=== PATIENT | female | born 1980 | race Caucasian/White ===

== ENCOUNTER → 2017-12-23 08:48 | Outpatient (CLI) | payer OTHER, SELFPAY ==
[2017-12-23 09:36] LABS: Anion Gap 7 (5-15); BUN 10 mg/dL (7-18); BUN/Creat Ratio 15.8 RATIO (10-20); Calcium,Total 8.7 mg/dL (8.5-10.1); Chloride 109 mmol/L (98-107); Creatinine, Serum 0.63 mg/dL (0.55-1.02); EST Glomerular Filtration Rate 114 mL/min (>60); Est Glom Filt Rate - Afr Amer 138 mL/min (>60); Glucose 95 mg/dL (74-106); Potassium 4.4 mmol/L (3.5-5.1); Sodium Level 140 mmol/L (136-145); Thyroid Stim Hormone (TSH) 0.63 uIU/mL (0.358-3.74)
== END ==
PROVIDERS: Family Provider Family Medicine; PCP Family Medicine; Visit Provider Internal Medicine Endocrinology, Diabetes & Metabolism
DX: E03.8 Other specified hypothyroidism (principal); E88.81 Metabolic syndrome and other insulin resistance; E66.01 Morbid (severe) obesity due to excess calories
CPT/HCPCS: 36415; 80048; 84403; 84443

== ENCOUNTER → 2018-02-09 17:00 | Outpatient (CLI) | payer OTHER, SELFPAY ==
[2018-02-09 18:38] LABS: Thyroid Stim Hormone (TSH) 2.48 uIU/mL (0.358-3.74)
== END ==
PROVIDERS: Family Provider Family Medicine; PCP Family Medicine; Visit Provider Internal Medicine Endocrinology, Diabetes & Metabolism
DX: E03.8 Other specified hypothyroidism (principal)
CPT/HCPCS: 84443

== ENCOUNTER → 2018-04-10 14:55 | Outpatient (CLI) | payer OTHER, SELFPAY ==
[2018-04-10 17:10] LABS: ALB/GLOB Ratio 0.8 RATIO (0.9-2.4); AST(SGOT) 10 U/L (15-37); Alanine Aminotransfer ALT/SGPT 14 U/L (13-56); Albumin, Serum 2.9 g/dL (3.2-5.0); Alkaline Phosphatase 54 U/L (45-117); Anion Gap 11 (5-15); BUN 9 mg/dL (7-18); BUN/Creat Ratio 18.7 RATIO (10-20); Calcium,Total 8.8 mg/dL (8.5-10.1); Chloride 107 mmol/L (98-107); Creatinine, Serum 0.48 mg/dL (0.55-1.02); EST Glomerular Filtration Rate 156 mL/min (>60); Est Glom Filt Rate - Afr Amer 188 mL/min (>60); Globulin 3.6 g/dL (2.2-4.2); Glucose 79 mg/dL (74-106); Potassium 3.7 mmol/L (3.5-5.1); Protein, Total 6.5 g/dL (6.4-8.2); Sodium Level 140 mmol/L (136-145); Thyroid Stim Hormone (TSH) 1.38 uIU/mL (0.358-3.74)
== END ==
PROVIDERS: Family Provider Family Medicine; PCP Family Medicine; Visit Provider Internal Medicine Endocrinology, Diabetes & Metabolism
DX: E03.8 Other specified hypothyroidism (principal); E04.0 Nontoxic diffuse goiter
CPT/HCPCS: 36415; 80053; 84443

== ENCOUNTER → 2018-05-23 11:20 | Outpatient (CLI) | payer OTHER, SELFPAY ==
[2018-05-23 12:55] LABS: Thyroid Stim Hormone (TSH) 0.62 uIU/mL (0.358-3.74)
== END ==
PROVIDERS: Family Provider Family Medicine; PCP Family Medicine; Visit Provider Internal Medicine Endocrinology, Diabetes & Metabolism
DX: E03.8 Other specified hypothyroidism (principal); E04.0 Nontoxic diffuse goiter
CPT/HCPCS: 36415; 84443

== ENCOUNTER → 2018-09-24 09:06 | Outpatient (CLI) | payer OTHER, SELFPAY ==
[2018-09-24 10:34] LABS: Thyroid Stim Hormone (TSH) 5.28 uIU/mL (0.358-3.74)
== END ==
PROVIDERS: Family Provider Family Medicine; PCP Family Medicine; Referring Provider Internal Medicine Endocrinology, Diabetes & Metabolism; Visit Provider Internal Medicine Endocrinology, Diabetes & Metabolism
DX: E03.8 Other specified hypothyroidism (principal)
CPT/HCPCS: 36415; 84443

== ENCOUNTER → 2018-12-29 08:48 | Outpatient (CLI) | payer OTHER, SELFPAY ==
[2018-12-29 09:59] LABS: Thyroid Stim Hormone (TSH) 0.05 uIU/mL (0.358-3.74)
== END ==
PROVIDERS: Family Provider Family Medicine; PCP Family Medicine; Referring Provider Internal Medicine Endocrinology, Diabetes & Metabolism; Visit Provider Internal Medicine Endocrinology, Diabetes & Metabolism
DX: E03.8 Other specified hypothyroidism (principal)
CPT/HCPCS: 36415; 84443

== ENCOUNTER → 2019-04-12 | Outpatient (CLI) | payer OTHER, SELFPAY ==
[2019-04-12 12:12] LABS: Thyroid Stim Hormone (TSH) 0.08 uIU/mL (0.358-3.74)
== END | disposition home or self-care (01) ==
LOC: LAB 11:19
PROVIDERS: Family Provider Family Medicine; PCP Family Medicine; Referring Provider Internal Medicine Endocrinology, Diabetes & Metabolism; Visit Provider Internal Medicine Endocrinology, Diabetes & Metabolism
DX: E03.8 Other specified hypothyroidism (principal); E04.0 Nontoxic diffuse goiter
CPT/HCPCS: 36415; 84443

== ENCOUNTER → 2019-06-15 | Outpatient (CLI) | payer OTHER, SELFPAY ==
[2019-06-15 11:36] LABS: Thyroid Stim Hormone (TSH) 0.16 uIU/mL (0.358-3.74)
== END | disposition home or self-care (01) ==
LOC: LAB 10:13
PROVIDERS: Family Provider Family Medicine; PCP Family Medicine; Referring Provider Internal Medicine Endocrinology, Diabetes & Metabolism; Visit Provider Internal Medicine Endocrinology, Diabetes & Metabolism
DX: E03.8 Other specified hypothyroidism (principal); E04.0 Nontoxic diffuse goiter
CPT/HCPCS: 36415; 84443

== ENCOUNTER → 2019-08-24 09:59 | Outpatient (CLI) | payer OTHER, SELFPAY ==
[2019-08-24 10:45] LABS: Thyroid Stim Hormone (TSH) 5.02 uIU/mL (0.358-3.74)
== END ==
PROVIDERS: Family Provider Family Medicine; PCP Family Medicine; Referring Provider Internal Medicine Endocrinology, Diabetes & Metabolism; Visit Provider Internal Medicine Endocrinology, Diabetes & Metabolism
DX: E03.8 Other specified hypothyroidism (principal)
CPT/HCPCS: 36415; 84443

== ENCOUNTER → 2019-11-02 11:36 | Outpatient (CLI) | payer OTHER, SELFPAY ==
[2019-11-02 12:50] LABS: Thyroid Stim Hormone (TSH) 4.42 uIU/mL (0.358-3.74)
== END ==
PROVIDERS: Family Provider Family Medicine; PCP Family Medicine; Referring Provider Internal Medicine Endocrinology, Diabetes & Metabolism; Visit Provider Internal Medicine Endocrinology, Diabetes & Metabolism
DX: E03.8 Other specified hypothyroidism (principal)
CPT/HCPCS: 36415; 84443

== ENCOUNTER → 2020-05-23 10:42 | Outpatient (CLI) | payer OTHER, SELFPAY ==
[2020-05-23 11:46] LABS: Thyroid Stim Hormone (TSH) 6.88 uIU/mL (0.358-3.74)
== END ==
PROVIDERS: PCP Family Medicine; Referring Provider Internal Medicine Endocrinology, Diabetes & Metabolism; Visit Provider Internal Medicine Endocrinology, Diabetes & Metabolism
DX: E03.8 Other specified hypothyroidism (principal)
CPT/HCPCS: 36415; 84443

== ENCOUNTER → 2020-12-31 16:59 | Outpatient (CLI) | payer OTHER, SELFPAY ==
[2020-12-31 17:51] LABS: Absolute Lymphocyte Count 2.89 X10^3/uL (0.83-4.51); Basophil# 0.06 X10^3/uL; Basophil% 0.7 % (0-1); Eosinophils% 3.4 % (0-5); Hematocrit 40.8 % (37-47); Hemoglobin 13.1 g/dL (12.0-15.0); Lymphocyte # 2.89 X10^3/ul (4.0); Lymphocyte % 32.6 % (19-41); Mean Corp Hgb Conc 32.1 g/dL (32-36); Mean Corpuscular Hgb 29.2 pg (27.0-32.0); Mean Corpuscular Volume 91.1 fL (81-99); Mean Platelet Vol. 10.1 fl (6.2-12.0); Monocyte# 0.62 X10^3/uL; NRBC Flagged by Analyzer 0 % (0-5); Neutrophil # 4.96 X10^3/uL (2.7-7.7); Platelet Count 261 K/mm3 (150-450); RBC Distribution Width CV 13.7 % (11.6-14.6); RBC Distribution Width SD 45.3 fl (35.1-43.9); Red Blood Count 4.48 M/mm3 (4.2-5.4); White Blood Count 8.9 K/mm3 (4.4-11.0)
[2020-12-31 18:50] LABS: AST(SGOT) 18 U/L (15-37); Alanine Aminotransfer ALT/SGPT 24 U/L (13-56); Albumin, Serum 3.8 g/dL (3.2-5.0); Alkaline Phosphatase 70 U/L (45-117); Anion Gap 7 (5-15); BUN 12 mg/dL (7-18); BUN/Creat Ratio 16.2 RATIO (10-20); Calcium,Total 9.1 mg/dL (8.5-10.1); Chloride 105 mmol/L (98-107); Creatinine, Serum 0.74 mg/dL (0.55-1.02); EST Glomerular Filtration Rate 93 mL/min (>60); Est Glom Filt Rate - Afr Amer 113 mL/min (>60); Globulin 3.9 g/dL (2.2-4.2); Glucose 66 mg/dL (74-106); Potassium 3.9 mmol/L (3.5-5.1); Protein, Total 7.7 g/dL (6.4-8.2); Sodium Level 138 mmol/L (136-145)
== END ==
PROVIDERS: PCP Family Medicine; Visit Provider Family Medicine Geriatric Medicine
DX: R53.83 Other fatigue (principal)
CPT/HCPCS: 36415; 80053; 84443; 85025

== ENCOUNTER → 2021-04-23 13:06 | Outpatient (CLI) | payer OTHER, SELFPAY ==
[2021-03-18 14:19] VITALS: BMI 48.8
== END ==
PROVIDERS: PCP Family Medicine; Referring Provider Internal Medicine Endocrinology, Diabetes & Metabolism; Visit Provider Internal Medicine Endocrinology, Diabetes & Metabolism
DX: E06.3 Autoimmune thyroiditis (principal); E03.8 Other specified hypothyroidism
CPT/HCPCS: 36415; 84439; 84443

== ENCOUNTER 2022-02-07 10:26 | Outpatient (CLI) | payer OTHER, SELFPAY ==
[2022-02-07 12:57] LABS: T4 Free Direct 1.18 ng/dL (0.76-1.46); Thyroid Stim Hormone (TSH) 0.43 uIU/mL (0.358-3.74)
== END 2022-02-07 23:59 | disposition home or self-care (01) ==
LOC: BIMLAB 10:27
PROVIDERS: PCP Family Medicine; Referring Provider Nurse Practitioner Family; Visit Provider Nurse Practitioner Family
DX: E03.8 Other specified hypothyroidism (principal); E06.3 Autoimmune thyroiditis
CPT/HCPCS: 36415; 84439; 84443

== ENCOUNTER → 2022-09-16 | Outpatient (CLI) | payer OTHER, SELFPAY ==
[2022-09-16 18:41] LABS: ALB/GLOB Ratio 0.9 RATIO (0.9-2.4); AST(SGOT) 26 U/L (15-37); Alanine Aminotransfer ALT/SGPT 45 U/L (13-56); Albumin, Serum 3.6 g/dL (3.2-5.0); Alkaline Phosphatase 79 U/L (45-117); Anion Gap 4 (5-15); BUN 15 mg/dL (7-18); BUN/Creat Ratio 24.5 RATIO (10-20); Calcium,Total 8.8 mg/dL (8.5-10.1); Chloride 108 mmol/L (98-107); Creatinine, Serum 0.61 mg/dL (0.55-1.02); EST Glomerular Filtration Rate 115 mL/min (>60); Est Glom Filt Rate - Afr Amer 140 mL/min (>60); Glucose 80 mg/dL (74-106); Potassium 3.9 mmol/L (3.5-5.1); Protein, Total 7.6 g/dL (6.4-8.2); Sodium Level 138 mmol/L (136-145)
== END | disposition home or self-care (01) ==
LOC: BIMLAB 15:56
PROVIDERS: PCP Family Medicine; Referring Provider Internal Medicine Endocrinology, Diabetes & Metabolism; Visit Provider Internal Medicine Endocrinology, Diabetes & Metabolism
DX: E03.8 Other specified hypothyroidism (principal); E06.3 Autoimmune thyroiditis; E28.2 Polycystic ovarian syndrome
CPT/HCPCS: 36415; 80053; 84439; 84443

== ENCOUNTER → 2023-09-22 | Outpatient (CLI) | payer OTHER, SELFPAY ==
[2023-09-22 13:03] LABS: AST(SGOT) 21 U/L (15-37); Alanine Aminotransfer ALT/SGPT 37 U/L (13-56); Albumin, Serum 3.4 g/dL (3.2-5.0); Alkaline Phosphatase 71 U/L (45-117); Anion Gap 5 (5-15); BUN 12 mg/dL (7-18); BUN/Creat Ratio 19.5 RATIO (10-20); Calcium,Total 8.6 mg/dL (8.5-10.1); Chloride 106 mmol/L (98-107); Cholesterol 153 mg/dL (200); Creatinine, Serum 0.62 mg/dL (0.55-1.02); EST Glomerular Filtration Rate 114 mL/min (>60); Est Glom Filt Rate - Afr Amer 138 mL/min (>60); Globulin 3.4 g/dL (2.2-4.2); Glucose 166 mg/dL (74-106); High Density Lipoprotein 38 mg/dL; Potassium 4.1 mmol/L (3.5-5.1); Protein, Total 6.8 g/dL (6.4-8.2); Sodium Level 137 mmol/L (136-145); T4 Free Direct 0.96 ng/dL (0.76-1.46); Thyroid Stim Hormone (TSH) 0.51 uIU/mL (0.358-3.74); Triglycerides 176 mg/dL; Very Low Density Lipoprotein 35 mg/dL (5-40)
== END | disposition home or self-care (01) ==
LOC: BIMLAB 10:34
PROVIDERS: PCP Family Medicine; Referring Provider Nurse Practitioner Family; Visit Provider Nurse Practitioner Family
DX: E03.8 Other specified hypothyroidism (principal); E06.3 Autoimmune thyroiditis; E28.2 Polycystic ovarian syndrome
CPT/HCPCS: 36415; 80053; 80061; 84439; 84443

== ENCOUNTER 2024-09-29 17:50 | Emergency (ER) | payer OTHER, SELFPAY ==
[2024-09-29 17:51] VITALS: BP 125/90; PULSE 101; RESP 16; TEMP 36.7; O2SAT 98; BMI 44.9
[2024-09-29 18:38] LABS: Absolute Lymphocyte Count 2.09 X10^3/uL (0.83-4.51); Absolute Neutrophil Count 7.9 X10^3/uL (2.0-7.7); Basophil# 0.05 X10^3/uL; Basophil% 0.5 % (0-1); Eosinophil# 0.16 X10^3/uL; Eosinophils% 1.5 % (0-5); Hematocrit 38.1 % (37-47); Hemoglobin 12.4 g/dL (12.0-15.0); Lymphocyte # 2.09 X10^3/ul (0.83-4.51); Lymphocyte % 19.1 % (19-41); Mean Corp Hgb Conc 32.5 g/dL (32-36); Mean Corpuscular Hgb 27.1 pg (27.0-32.0); Mean Corpuscular Volume 83.4 fL (81-99); Mean Platelet Vol. 10.6 fl (6.2-12.0); Monocyte# 0.74 X10^3/uL; Monocyte% 6.7 % (0-10); NRBC Flagged by Analyzer 0 % (0-5); Neutrophil # 7.89 X10^3/uL (2.7-7.7); Neutrophil % 71.8 % (47-70); Platelet Count 261 K/mm3 (150-450); RBC Distribution Width CV 13.7 % (11.6-14.6); RBC Distribution Width SD 41.1 fl (35.1-43.9); Red Blood Count 4.57 M/mm3 (4.2-5.4)
[2024-09-29 18:45] LABS: Color, Urine Yellow (Yellow); Glucose, Dipstick Normal (Normal); Ketone-Dipstick Negative (Negative); Leukocyte Esterase-Dipstick Negative /ul (Negative); Nitrite-Dipstick Negative (Negative); Occult Blood-Urine Negative /ul (Negative); Protein-Dipstick 15 mg/dl (Negative); Specific Gravity, Urine 1.015 (1.002-1.030); Urine Bilirubin Dipstick Negative (Negative); Urine Clarity Sl. Cloudy (Clear); Urine Urobilinogen Normal (Normal)
[2024-09-29 18:52] LABS: Bacteria 1+ /hpf (None Seen); Mucous, Urine 2+ /hpf (<or=2+)
[2024-09-29 18:53] LABS: Squamous Epithelial Cells - UA 5-10 SEEN /hpf (5-10)
[2024-09-29 18:55] LABS: AST(SGOT) 14 U/L (15-37); Alanine Aminotransfer ALT/SGPT 28 U/L (13-56); Albumin, Serum 3.8 g/dL (3.2-5.0); Alkaline Phosphatase 74 U/L (45-117); Anion Gap 4 (5-15); BUN 10 mg/dL (7-18); BUN/Creat Ratio 12.4 RATIO (10-20); Calcium,Total 9.3 mg/dL (8.5-10.1); Chloride 106 mmol/L (98-107); Creatinine, Serum 0.81 mg/dL (0.55-1.02); EST Glomerular Filtration Rate 83 mL/min (>60); Est Glom Filt Rate - Afr Amer 100 mL/min (>60); Estimated Creatinine Clearance 120.03 ml/min; Globulin 3.9 g/dL (2.2-4.2); Glucose 97 mg/dL (74-106); Lipase 52 U/L (13-75); Potassium 3.8 mmol/L (3.5-5.1); Protein, Total 7.7 g/dL (6.4-8.2); Sodium Level 137 mmol/L (136-145)
[2024-09-29 18:56] LABS: Internal QC Validated? YES +Cl - CLEAR BKGD; Pregnancy, Urine Negative Negative; Red Blood Cells-Urine 0-5 SEEN /hpf (0-5); White Blood Cells 0-5 SEEN /hpf (0-5)
--- NOTE | 2024-09-29 19:18 | CT_ITS ---
STUDY: CT Abdomen And Pelvis W/ Contrast Injection 09/29/2024 7:54 PM REASON FOR EXAM: Female, 43 years old. ABDOMINAL PAIN rlq pain TECHNIQUE: Transaxial images were obtained without oral contrast, and IV 100mL Isovue-370 intravenous contrast. Individualized dose optimization techniques were used for this CT. COMPARISON: None FINDINGS: The visualized lung bases are unremarkable. The visualized portions of the heart are within normal limits. Unremarkable liver. Unremarkable gallbladder and extrahepatic biliary system. Unremarkable spleen. Unremarkable pancreas. Unremarkable bilateral adrenal glands. No acute findings of the right kidney. No acute findings of the left kidney. Unremarkable visualized stomach. Unremarkable small intestine. Unremarkable colon. There is non-visualization of the appendix. There are no acute findings of the abdominal aorta. Unremarkable inferior vena cava. Subcentimeter mesenteric lymph nodes. Unremarkable urinary bladder. Normal visualized uterus. 11.8 x 14 cm right ovarian cyst. There is an umbilical hernia containing fat. No acute findings in the lumbar spine. Degenerative findings of the thoracic spine. CT/Abdomen/Pelvis W IV Cont ONLY IMPRESSION: (NOT LISTED IN ORDER OF SIGNIFICANCE) Umbilical hernia containing fat. Degenerative findings in the thoracic spine. 14 cm right ovarian cyst. Concern for low-grade cystic neoplasm of the ovary. Gynecologic consultation is recommended and consider MRI with IV contrast if clinically warranted. Other findings as above. Electronically Signed: Dedrick Dooley MD at 20:07 EST ,
[2024-09-29 19:47] VITALS: BP 130/81
--- NOTE | 2024-09-29 20:43 | US_ITS ---
INDICATION: right ovarian cyst EXAMINATION: Ultrasound US Transvaginal Non-OB TECHNIQUE: Transabdominal and transvaginal sonographic images of the pelvis. Grayscale, spectral waveform, and color flow Doppler evaluation of the adnexa. COMPARISON: CT from earlier same day. FINDINGS: UTERUS: Anteverted. 11.5 x 7.1 x 6.3 cm. No evidence of a uterine mass or fibroid. Endometrium is unremarkable. Endometrial stripe thickness of 1.8 cm. Multiple nabothian cysts. RIGHT OVARY: 2.0 cm cyst consistent with a dominant follicle with no follow-up recommended. Normal vascular flow demonstrated with color and pulsed-wave Doppler. LEFT OVARY: Unremarkable. Normal vascular flow demonstrated with color and pulsed-wave Doppler. FREE FLUID: No significant free fluid. 14.9 cm simple cyst superior to the uterus. US/Transvaginal Non- IMPRESSION: 1. 14.9 cm simple cyst superior to the uterus. These ultrasound images do not demonstrate the cyst to be associated with an ovary, however CT images demonstrate what appears to be the cyst arising from the right ovary. Recommend follow-up with nonemergent routine pelvic MRI for further delineation of the origin of the cyst. 2. No evidence of ovarian torsion. Electronically Signed: Yao Wang DO at 22:49 EST ,
[2024-09-29] MEDS: Acetaminophen 500 MG Tablet 1000 MG PO (21:34)
[2024-09-29 21:36] VITALS: BP 154/100; PULSE 100; RESP 16; O2SAT 100
--- NOTE | 2024-09-29 23:07 | EX.ED.DYSGE1 ---
HPI History of Present Illness Chief Complaint: Abd Pain Narrative Narrative: Patient is a 43-year-old female with past medical history PCOS, diabetes, hypothyroidism who presented to the emergency department with a chief complaint of abdominal pain. Patient states that her pain started earlier today and persisted prompting her to come here for further evaluation management. Patient denies any previous abdominal surgery. Patient states that her pain appears to be worsened when she tries to get up and ambulates she states that if she is sitting still her pain is controlled. States that she has not taken thing for pain prior to arrival here. PFSH [facility] Medical History Diabetes Obesity PCOS (polycystic ovarian syndrome) Abnormal glucose Hypothyroidism due to Bishnu's thyroiditis Thyroid disease Home Medications ?Medication ?Instructions ?Recorded ?Last Taken ?Type levothyroxine 175 mcg tablet 175 mcg PO .Mon-Mon, skip Monday11/03/23 Unknown Rx #90 tabs Mounjaro 10 mg/0.5 mL subcutaneous 10 mg (0.5 mL) subcut QWEEK #2 mL 02/27/24 Unknown Rx pen injector (tirzepatide) tirzepatide 7.5 mg/0.5 mL 7.5 mg (0.5 mL) subcut QWEEK #2 mL 07/24/24 Unknown Rx subcutaneous pen injector (Mounjaro) dicyclomine 10 mg capsule 10 mg PO TID 5 days #15 caps 09/29/24 Unknown Rx ondansetron 4 mg disintegrating 4 mg PO Q6H PRN nausea and 09/29/24 Unknown Rx tablet vomiting #20 tabs Allergy/AdvReac Type Severity Reaction Status Date / Time Penicillins Allergy Other Verified 09/29/24 17:51 Family History Other Breast cancer CVA (cerebral vascular accident) Diabetes High cholesterol Hypertension Skin cancer Social History Smoking Status: Never smoker alcohol intake: current alcohol intake frequency: 0-2 drinks per day substance use type: does not use what type of physical activity do you participate in: none ROS ROS ED ROS Narrative Constitutional: Denies any fevers, chills, headaches, lightness, dizziness Eyes: Denies change in vision double vision blurry vision Cardiovascular: Denies chest pain or palpitations Respiratory: Denies shortness of breath Abdomen: Complains of abdominal pain that started earlier today as noted above : Denies any urinary symptoms Neurological: Denies any numbness, weakness, tingling Skin: Denies rashes or lesions EXAM Physical Exam Narrative Exam Narrative: General: Patient lying in bed rest comfortably did not appear to be in acute distress Head: Atraumatic, normocephalic Eyes: PERRL bilateral, EOMI bladder, no conjunctival injection noted Neck: Soft, supple, trachea midline Cardiovascular: Regular rate and rhythm no murmurs gallops rubs noted Respiratory: Clear to auscultation bilaterally Abdomen: Soft, nondistended, tender to palpation in the right lower quadrant no rebound or guarding on exam Extremities: +5/5 strength noted in the bilateral upper and lower extremities, radial pulses +2/4 in the bilateral per extremities Neurological: Patient was following commands knew that she was at [facility] there is 2023 Skin: Warm, dry, intact Const Vital Signs: 09/29/24 17:51 09/29/24 19:47 09/29/24 21:36 Temperature 98.0 F Temperature Source Oral Pulse Rate 101 H 100 Respiratory Rate 16 16 Blood Pressure 125/90 H 130/81 H 154/100 H Blood Pressure Mean 101 97 118 Pulse Ox 98 100 Oxygen Delivery Method Room Air Room Air MDM [facility] Narrative Medical decision making narrative: Patient is a 43-year-old female who presented to the [facility] part with a chief complaint of abdominal pain. Patient will have a workup performed here on the differential diagnose includes but not limited to appendicitis, viral gastroenteritis, ruptured cyst, ovarian torsion. Once workup is obtained reviewed she will be reevaluated. Patient's CBC reviewed and showed no evidence leukocytosis white blood count normal 11, hemoglobin was normal at 12.4, platelet count stable to 61. Patient sodium normal 137, potassium normal 3.8, creatinine normal at 0.81. Patient's AST and ALT are 14 and 28 respectively with a normal total bilirubin of 0.40. Patient's lipase normal at 52. Patient's urinalysis reviewed and showed no evidence of infection and test was negative. Patient CT abdomen pelvis with IV contrast was reviewed and showed 14 cm right ovarian cyst concern for low-grade cystic neoplasm of the ovary gynecological consultation is recommending consider MRI with IV contrast if clinically warranted. Since patient was having worsening pain with standing and this was in the right lower quadrant and she has a large ovary will add on a ultrasound to ensure she does not have ovarian torsion. Patient's ultrasound was reviewed which showed simple cyst to the uterus which once again was measured at 14.9 cm. The ultrasound images do not demonstrate the cyst to be associated with an ovary however her CT images demonstrate what appears to be a cyst arising from the right ovary. They are recommending nonemergent routine pelvic MRI for further delineation of the origin of the cyst no evidence of ovarian torsion. I did provide hardcopy results of the CT abdomen pelvis with contrast as well as the ultrasound and discussed these results with the patient. She was advised to take these to her [employer] and her primary care physician. She was advised to return with worsening symptoms or concerns. She will be care was prescribed Bentyl and Zofran. She would like to go home her significant other bedside is also agreeable with this plan all question concerns answered she was discharged home in stable condition. Lab Data Labs: Laboratory Results - last 24 hr 09/29/24 09/29/24 18:05 18:35 WBC 11.0 RBC 4.57 Hgb 12.4 Hct 38.1 MCV 83.4 MCH 27.1 MCHC 32.5 RDW Std Deviation 41.1 RDW Coeff of Emeli 13.7 Plt Count 261 MPV 10.6 Immature Gran % (Auto) 0.400 Neut % (Auto) 71.8 H Lymph % (Auto) 19.1 [place] % (Auto) 6.7 Eos % (Auto) 1.5 Baso % (Auto) 0.5 Absolute Neuts (auto) 7.9 H Absolute Lymphs (auto) 2.09 Nucleated RBC % 0 Sodium 137 Potassium 3.8 Chloride 106 Carbon Dioxide 27.0 Anion Gap 4 L BUN 10 Creatinine 0.81 Estim Creat Clear Calc 120.03 Est GFR (MDRD) Af Amer 100 Est GFR (MDRD) Non-Af 83 BUN/Creatinine Ratio 12.4 Glucose 97 Calcium 9.3 Total Bilirubin 0.40 AST 14 L ALT 28 Alkaline Phosphatase 74 Total Protein 7.7 Albumin 3.8 Globulin 3.9 Albumin/Globulin Ratio 1.0 Lipase 52 Urine Color Yellow Urine Clarity Sl. Cloudy Urine pH 7.0 Ur Specific [place] 1.015 Urine Protein 15 H Urine Glucose (UA) Normal Urine Ketones Negative Urine Occult Blood Negative Urine Nitrite Negative Urine Bilirubin Negative Urine Urobilinogen Normal Ur Leukocyte Esterase Negative Urine RBC 0-5 SEEN Urine WBC 0-5 SEEN Ur Squamous Epith Cells 5-10 SEEN Urine Bacteria 1+ Urine Mucus 2+ Urine Test Negative Radiography Diagnostic Testing: Clinical Impression(s) from Imaging Studies Abdomen/Pelvis CT 09/29/24 19:18 IMPRESSION: (NOT LISTED IN ORDER OF SIGNIFICANCE) Umbilical hernia containing fat. Degenerative findings in the thoracic spine. 14 cm right ovarian cyst. Concern for low-grade cystic neoplasm of the ovary. Gynecologic consultation is recommended and consider MRI with IV contrast if clinically warranted. Other findings as above. Electronically Signed: Dedrick Dooley MD at 20:07 EST , Transvaginal US 09/29/24 20:43 IMPRESSION: 1. 14.9 cm simple cyst superior to the uterus. These ultrasound images do not demonstrate the cyst to be associated with an ovary, however CT images demonstrate what appears to be the cyst arising from the right ovary. Recommend follow-up with nonemergent routine pelvic MRI for further delineation of the origin of the cyst. 2. No evidence of ovarian torsion. Electronically Signed: Yao Wang DO at 22:49 EST , Discharge Plan Triage Chief Complaint: Abd Pain ED Provider: Connor Stafford Dx/Rx/DC Orders Clinical Impression: Abdominal pain, Ovarian cyst, right Prescriptions: New ondansetron 4 mg tablet,disintegrating 4 mg PO Q6H PRN (Reason: nausea and vomiting) Qty: 20 0RF dicyclomine 10 mg capsule 10 mg PO TID 5 Days Qty: 15 0RF No Action levothyroxine 175 mcg tablet 175 mcg PO .Mon-Sat, skip Monday Qty: 90 3RF Mounjaro 10 mg/0.5 mL pen injector 10 mg subcut QWEEK Qty: 2 5RF Mounjaro 7.5 mg/0.5 mL pen injector 7.5 mg subcut QWEEK Qty: 2 5RF Primary Care Provider: Reji Montesinos Referrals: Reji Montesinos MD [Primary Care Provider] - Activity Restrictions/Additional Instructions: Take the ultrasound results and your CT results with you to your [employer]. Follow-up with your primary care physician as well. Use prescriptions as prescribed. Return with worsening symptoms or any other concerns. Print Language: Thai Disposition Disposition: Home, Self Care
[2024-09-29 23:24] VITALS: BP 139/84; PULSE 95; RESP 16; TEMP 36.6; O2SAT 100
== END 2024-09-29 23:29 | disposition home or self-care (01) ==
PROVIDERS: Emergency Provider Emergency Medicine; PCP Family Medicine; Visit Provider Emergency Medicine
DX: R10.9 Unspecified abdominal pain (principal); E11.9 Type 2 diabetes mellitus without complications; N83.201 Unspecified ovarian cyst, right side; E03.9 Hypothyroidism, unspecified; Z79.890 Hormone replacement therapy; Z79.85 Long-term (current) use of injectable non-insulin antidiabetic drugs
CPT/HCPCS: 74177; 76830; 80053; 81001; 81025; 83690; 85025; 99283; Q9967

== ENCOUNTER → 2024-10-29 | Outpatient (CLI) | payer OTHER, SELFPAY ==
[2024-10-29 13:45] LABS: AST(SGOT) 14 U/L (15-37); Alanine Aminotransfer ALT/SGPT 27 U/L (13-56); Albumin, Serum 3.7 g/dL (3.2-5.0); Alkaline Phosphatase 69 U/L (45-117); Anion Gap 4 (5-15); BUN 14 mg/dL (7-18); BUN/Creat Ratio 17.3 RATIO (10-20); Calcium,Total 9.3 mg/dL (8.5-10.1); Chloride 111 mmol/L (98-107); Cholesterol 166 mg/dL (200); Creatinine, Serum 0.81 mg/dL (0.55-1.02); EST Glomerular Filtration Rate 82 mL/min (>60); Est Glom Filt Rate - Afr Amer 100 mL/min (>60); Globulin 3.6 g/dL (2.2-4.2); Glucose 116 mg/dL (74-106); High Density Lipoprotein 35 mg/dL; Potassium 4.4 mmol/L (3.5-5.1); Protein, Total 7.3 g/dL (6.4-8.2); Sodium Level 138 mmol/L (136-145); T4 Free Direct 1.16 ng/dL (0.76-1.46); Triglycerides 84 mg/dL; Very Low Density Lipoprotein 17 mg/dL (5-40)
== END | disposition home or self-care (01) ==
LOC: BIMLAB 09:21
PROVIDERS: PCP Family Medicine; Referring Provider Internal Medicine Endocrinology, Diabetes & Metabolism; Visit Provider Internal Medicine Endocrinology, Diabetes & Metabolism
DX: E11.9 Type 2 diabetes mellitus without complications (principal); E03.8 Other specified hypothyroidism; E06.3 Autoimmune thyroiditis; E66.9 Obesity, unspecified
CPT/HCPCS: 36415; 80053; 80061; 83036; 84439; 84443

== ENCOUNTER → 2025-04-21 | Outpatient (CLI) | payer OTHER, SELFPAY ==
[2025-04-21 15:55] LABS: Thyroid Stim Hormone (TSH) 0.753 uIU/mL (0.300-4.200)
== END | disposition home or self-care (01) ==
LOC: BIMLAB 12:25
PROVIDERS: PCP Family Medicine; Referring Provider Internal Medicine Endocrinology, Diabetes & Metabolism; Visit Provider Internal Medicine Endocrinology, Diabetes & Metabolism
DX: E03.8 Other specified hypothyroidism (principal); E06.3 Autoimmune thyroiditis
CPT/HCPCS: 36415; 84439; 84443

== ENCOUNTER → 2025-07-23 | Outpatient (CLI) | payer OTHER, SELFPAY ==
[2025-07-23 15:55] LABS: Creatinine, Urine (random) 237.00 mg/dL (28.00-217.00); Microalbumin,Random Urine < 12.0 mg/L (<20 mg/L)
[2025-07-23 16:04] LABS: AST(SGOT) 19 U/L (<=31); Alanine Aminotransfer ALT/SGPT 20 U/L (<=34); Albumin, Serum 4.0 g/dL (3.5-5.0); Alkaline Phosphatase 68 U/L (35-104); Anion Gap 9 (5-15); BUN 17 mg/dL (4-19); BUN/Creat Ratio 24.5 RATIO (10-20); Calcium,Total 9.1 mg/dL (7.6-11.0); Carbon Dioxide 21.4 mmol/L (21.0-32.0); Chloride 107 mmol/L (98-108); Cholesterol 156 mg/dL (<=200); Globulin 2.8 g/dL (2.2-4.2); Glucose 83 mg/dL (70-99); Low Density Lipoprotein Calc. 109 mg/dL; Potassium 4.2 mmol/L (3.3-5.1); Triglycerides 61 mg/dL; Very Low Density Lipoprotein 12 mg/dL (5-40); cholesterol:hdl ratio screen 4.52
== END | disposition home or self-care (01) ==
LOC: BIMLAB 12:22
PROVIDERS: PCP Family Medicine; Visit Provider Internal Medicine Endocrinology, Diabetes & Metabolism
DX: E11.65 Type 2 diabetes mellitus with hyperglycemia (principal); E03.8 Other specified hypothyroidism; E06.3 Autoimmune thyroiditis
CPT/HCPCS: 36415; 80053; 80061; 82043; 82570; 83036; 84439; 84443

== ENCOUNTER → 2025-09-10 | Outpatient (CLI) | payer OTHER, SELFPAY ==
[2025-09-10 13:16] LABS: Hematocrit 40.3 % (37-47); Hemoglobin 13.7 g/dL (12.0-15.0); Immature Granulocytes Count 0.010 X10^3/uL (0.0-0.0); Mean Corp Hgb Conc 34.0 g/dL (32-36); Mean Corpuscular Volume 84.8 fL (81-99); Mean Platelet Vol. 10.3 fl (6.2-12.0); NRBC Flagged by Analyzer 0 % (0-5); Platelet Count 282 K/mm3 (150-450); RBC Distribution Width CV 13.4 % (11.6-14.6); RBC Distribution Width SD 41.6 fl (35.1-43.9); Red Blood Count 4.75 M/mm3 (4.2-5.4); White Blood Count 6.6 K/mm3 (4.4-11.0)
[2025-09-10 13:34] LABS: Creatinine, Urine (random) 174.00 mg/dL (28.00-217.00); Microalbumin,Random Urine 19.7 mg/L (<20 mg/L)
[2025-09-10 13:58] LABS: AST(SGOT) 24 U/L (<=31); Alanine Aminotransfer ALT/SGPT 29 U/L (<=34); Albumin, Serum 4.3 g/dL (3.5-5.0); Alkaline Phosphatase 71 U/L (35-104); Anion Gap 9 (5-15); BUN 14 mg/dL (4-19); BUN/Creat Ratio 19.5 RATIO (10-20); Calcium,Total 9.5 mg/dL (7.6-11.0); Carbon Dioxide 23.3 mmol/L (21.0-32.0); Chloride 106 mmol/L (98-108); Cholesterol 155 mg/dL (<=200); Ferritin 19 ng/mL (22-378); Globulin 3.0 g/dL (2.2-4.2); Glucose 86 mg/dL (70-99); Low Density Lipoprotein Calc. 97 mg/dL; Potassium 4.6 mmol/L (3.3-5.1); Triglycerides 81 mg/dL; Very Low Density Lipoprotein 16 mg/dL (5-40); cholesterol:hdl ratio screen 3.63
== END | disposition home or self-care (01) ==
LOC: LAB 12:40
PROVIDERS: PCP Family Medicine; Referring Provider Internal Medicine Endocrinology, Diabetes & Metabolism; Visit Provider Internal Medicine Endocrinology, Diabetes & Metabolism
DX: E11.65 Type 2 diabetes mellitus with hyperglycemia (principal); E03.8 Other specified hypothyroidism; E06.3 Autoimmune thyroiditis
CPT/HCPCS: 36415; 80053; 80061; 82043; 82570; 82728; 83036; 84443; 85025